=== PATIENT | female | born 1975 | race Hispanic/Latino ===

== ENCOUNTER 2018-11-10 00:57 | Emergency (ER) | payer OTHER ==
--- NOTE | 2018-11-10 02:11 | EDPHYS ---
Physician Documentation [facility] Name: Deonna Heller Age: 42 yrs Sex: Female : 1975 Arrival Date: 11/10/2018 Time: 01:04 Bed 20 Private MD: ED Physician Jasbir Slade HPI: 11/10 02:06 This 42 yrs old Female presents to ER via Ambulatory with complaints of Head km Injury-Adult. 02:06 The patient or guardian reports injury, tenderness. The complaints affect the left km occipital area and right occipital area. Context of injury: The problem was sustained at home. Onset: The symptoms/episode began/occurred 20 hour(s) ago. Associated signs and symptoms: The patient has no apparent associated signs or symptoms, Loss of consciousness: This patient did not experience any loss of consciousness. Severity of symptoms: At their worst the symptoms were mild, in the emergency department the symptoms are unchanged. The patient has not experienced similar symptoms in the past. 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 - Social history:: Smoking status: Patient/guardian denies using tobacco. - Ebola Screening: : No symptoms or risks identified at this time. - Family history:: not pertinent. ROS: 02:06 Constitutional: Negative for fever, chills, and weight loss, Eyes: Negative for injury, km pain, redness, and discharge, ENT: Negative for injury, pain, and discharge, Neck: Negative for injury, pain, and swelling, Cardiovascular: Negative for chest pain, palpitations, and edema, Respiratory: Negative for shortness of breath, cough, wheezing, and pleuritic chest pain, Abdomen/GI: Negative for abdominal pain, nausea, vomiting, diarrhea, and constipation, Back: Negative for injury and pain, : Negative for injury, bleeding, discharge, and swelling, MS/Extremity: Negative for injury and deformity, Skin: Negative for injury, rash, and discoloration, Psych: Negative for depression, anxiety, suicide ideation, homicidal ideation, and hallucinations, Allergy/Immunology: Negative for hives, rash, and allergies, Endocrine: Negative for neck swelling, polydipsia, polyuria, polyphagia, and marked weight changes, Hematologic/Lymphatic: Negative for swollen nodes, abnormal bleeding, and unusual bruising. 02:06 Neuro: Positive for headache. Exam: 02:06 Constitutional: This is a well developed, well nourished patient who is awake, alert, km and in no acute distress. Eyes: Pupils equal round and reactive to light, extra-ocular motions intact. Lids and lashes normal. Conjunctiva and sclera are non-icteric and not injected. Cornea within normal limits. Periorbital areas with no swelling, redness, or edema. ENT: Nares patent. No nasal discharge, no septal abnormalities noted. Tympanic membranes are normal and external auditory canals are clear. Oropharynx with no redness, swelling, or masses, exudates, or evidence of obstruction, uvula midline. Mucous membranes moist. Neck: Trachea midline, no thyromegaly or masses palpated, and no cervical lymphadenopathy. Supple, full range of motion without nuchal rigidity, or vertebral point tenderness. No Meningismus. Chest/axilla: Normal chest wall appearance and motion. Nontender with no deformity. No lesions are appreciated. Cardiovascular: Regular rate and rhythm with a normal S1 and S2. No gallops, murmurs, or rubs. Normal PMI, no JVD. No pulse deficits. Respiratory: Lungs have equal breath sounds bilaterally, clear to auscultation and percussion. No rales, rhonchi or wheezes noted. No increased work of breathing, no retractions or nasal flaring. Abdomen/GI: Soft, non-tender, with normal bowel sounds. No distension or tympany. No guarding or rebound. No evidence of tenderness throughout. Back: No spinal tenderness. No costovertebral tenderness. Full range of motion. Skin: Warm, dry with normal turgor. Normal color with no rashes, no lesions, and no evidence of cellulitis. MS/ Extremity: Pulses equal, no cyanosis. Neurovascular intact. Full, normal range of motion. Neuro: Awake and alert, GCS 15, oriented to person, place, time, and situation. Cranial nerves II-XII grossly intact. Motor strength 5/5 in all extremities. Sensory grossly intact. Cerebellar exam normal. Normal gait. Psych: Awake, alert, with orientation to person, place and time. Behavior, mood, and affect are within normal limits. 02:06 Head/face: Noted is swelling, that is mild, of the left side of the back of head, left occipital area, left base of the skull, right side of the back of head, right occipital area and right base of the skull. Vital Signs: 01:23 BP 149 / 92; Pulse 110; Resp 18; Temp 98.7(O); Pulse Ox 96% ; Weight 68.04 kg; Height 5 ea ft. 5 in. (165.10 cm); Pain 7/10; 01:23 Body Mass Index 24.96 (68.04 kg, 165.10 cm) ea Brittany Coma Score: 01:19 Eye Response: spontaneous(4). Verbal Response: oriented(5). Motor Response: obeys commands(6). Total: 15. 02:06 Eye Response: spontaneous(4). Verbal Response: oriented(5). Motor Response: obeys [facility] commands(6). Total: 15. MDM: 01:19 Patient medically screened. [facility] 02:09 Data reviewed: vital signs, nurses notes. [facility] Administered Medications: 02:18 Drug: Motrin 600 mg Route: PO; ak1 02:22 Follow up: Response: Medication administered at discharge. ak1 Disposition: 11/10/18 02:10 Discharged to Home. Impression: Headache, Superficial injury of head. - Condition is Stable. - Discharge Instructions: Head Injury, Adult, Head Injury, Adult, [id number]. - Prescriptions for Ibuprofen 600 mg Oral Tablet - take 1 tablet by ORAL route every 8 hours As needed take with food; 21 tablet. Zofran 4 mg Oral Tablet - take 1 tablet by ORAL route every 12 hours As needed; 10 tablet. - Medication Reconciliation Form, Thank You Letter, Antibiotic Education, Prescription Opioid Use form. - Follow up: Private Physician; When: 2 - 3 days; Reason: Recheck today's complaints, Continuance of care, Re-evaluation by your physician. - Problem is new. - Symptoms have improved. Signatures: Jasbir Slade MD MD cha Krenek, Amber RN RN ak1 Magalis Ho RN RN ea Corrections: (The following items were deleted from the chart) 02:26 02:10 11/10/2018 02:10 Discharged to Home. Impression: Headache; Superficial injury of ak1 head. Condition is Stable. Forms are Medication Reconciliation Form, Thank You Letter, Antibiotic Education, Prescription Opioid Use. Follow up: Private Physician; When: 2 - 3 days; Reason: Recheck today's complaints, Continuance of care, Re-evaluation by your physician. Problem is new. Symptoms have improved. km
--- NOTE | 2018-11-10 02:11 | ER ---
Nurse's Notes [facility] Name: Deonna Heller Age: 42 yrs Sex: Female : 1975 Arrival Date: 11/10/2018 Time: 01:04 Bed 20 Private MD: Diagnosis: Headache;Superficial injury of head Presentation: 11/10 01:19 Presenting complaint: Patient states: Pt reports she hit her head on the headboard of ea her bed this AM, denies LOC. States "I have been having a headache since this morning and the pain just seems to be getting worse". Transition of care: patient was not received from another setting of care. Mechanism of Injury: resulted from impacting a hard surface, headboard. 01:19 Method Of Arrival: Ambulatory ea 01:27 Onset of symptoms was November 10, 2018. Risk Assessment: Do you want to hurt yourself ea or someone else? Patient reports no desire to harm self or others. Initial Sepsis Screen: Does the patient meet any 2 criteria? HR > 90 bpm. Yes Does the patient have a suspected source of infection? No. Patient's initial sepsis screen is negative. Care prior to arrival: None. 01:27 Acuity: JEANNA 3 ea Triage Assessment: 01:28 General: Appears in no apparent distress. Behavior is calm, cooperative, appropriate ea for age. Pain: Complains of pain in occipital area Pain radiates to forehead Pain currently is 7 out of 10 on a pain scale. Quality of pain is described as pressure. Neuro: Level of Consciousness is awake, alert, obeys commands, Oriented to person, place, time, situation, Reports headache frontal area, occipital area. Cardiovascular: Patient's skin is warm and dry. Respiratory: Airway is patent Respiratory effort is even, unlabored, Respiratory pattern is regular, symmetrical. GI: No signs and/or symptoms were reported involving the gastrointestinal system. Derm: Skin is pink, warm \\T\\ dry. 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 - Social history:: Smoking status: Patient/guardian denies using tobacco. - Ebola Screening: : No symptoms or risks identified at this time. - Family history:: not pertinent. Screenin:22 Abuse screen: Denies threats or abuse. Nutritional screening: No deficits noted. ea Tuberculosis screening: No symptoms or risk factors identified. Fall Risk None identified. Assessment: 02:23 General: Appears in no apparent distress. Behavior is calm, cooperative. Pain: ak1 Complains of pain in right base of the skull and right side of the back of head and left base of the skull and left side of the back of head and right occipital area and left occipital area and face and forehead and scalp and occipital area. Neuro: Level of Consciousness is awake, alert, obeys commands, Oriented to person, place, time, situation, Camera Assembler are equal bilaterally Moves all extremities. Gait is steady, Speech is normal. Cardiovascular: Rhythm is sinus tachycardia. Respiratory: No deficits noted. GI: Reports nausea. : No signs and/or symptoms were reported regarding the genitourinary system. EENT: No signs and/or symptoms were reported regarding the EENT system. Derm: No signs and/or symptoms reported regarding the dermatologic system. Musculoskeletal: No signs and/or symptoms reported regarding the musculoskeletal system. Vital Signs: 01:23 BP 149 / 92; Pulse 110; Resp 18; Temp 98.7(O); Pulse Ox 96% ; Weight 68.04 kg; Height 5 ea ft. 5 in. (165.10 cm); Pain 7/10; 01:23 Body Mass Index 24.96 (68.04 kg, 165.10 cm) ea Brittany Coma Score: 01:19 Eye Response: spontaneous(4). Verbal Response: oriented(5). Motor Response: obeys ea commands(6). Total: 15. 02:06 Eye Response: spontaneous(4). Verbal Response: oriented(5). Motor Response: obeys [facility] commands(6). Total: 15. ED Course: 01:04 Patient arrived in ED. es 01:19 Jasbir Slade MD is Attending Physician. km 01:23 Patient has correct armband on for positive identification. Placed in gown. Bed in low ea position. Call light in reach. 01:23 Arm band placed on right wrist. Patient placed in an exam room, on a stretcher, on ea pulse oximetry. 01:27 Triage completed. ea 02:16 Magalis Ho, RN is Primary Nurse. ea 02:23 No provider procedures requiring assistance completed. Patient did not have IV access ak1 during this emergency room visit. Administered Medications: 02:18 Drug: Motrin 600 mg Route: PO; ak1 02:22 Follow up: Response: Medication administered at discharge. ak1 Outcome: 02:10 Discharge ordered by . km 02:24 Discharged to home ambulatory, pt left prior to signing paperwork. pt left prior to ak1 discharge instructions. pt left without prescriptions. 02:24 Condition: good 02:24 Discharge instructions given to no instruction or prescriptions given due to pt eloping. 02:26 Patient left the ED. ak1 Signatures: Jasbir Slade MD MD cha Salyer, Edna es Krenek, Amber RN RN ak Magalis Ho, RN RN boogie
[2018-11-10] MEDS ORDERED: IBUPROFEN 400 MG TAB ONE (02:28)
[2018-11-10] MEDS ORDERED: IBUPROFEN 200 MG TAB PO ONE (02:28)
== END 2018-11-10 02:26 | disposition home or self-care (01) ==
LOC: ER 00:57
DX: S00.90XA Unspecified superficial injury of unspecified part of head, initial encounter (principal); X58.XXXA Exposure to other specified factors, initial encounter; Y93.9 Activity, unspecified; Y92.009 Unspecified place in unspecified non-institutional (private) residence as the place of occurrence of the external cause; I10 Essential (primary) hypertension
CPT/HCPCS: 99284

== ENCOUNTER 2019-03-12 08:05 | Emergency (ER) | payer OTHER ==
[2019-03-12] MEDS ORDERED: ONDANSETRON 4 MG/2 ML VIAL ONE (08:47)
[2019-03-12] MEDS ORDERED: NA CHLORIDE 0.9% 1,000 ML ONE (08:47)
[2019-03-12 09:09] LABS: Absolute Monocytes 0.7 K/uL (0.1-1.3); Absolute Neutrophil 8.9 K/uL (1.8-8.0); Basophils % 0.3 % (0-1.3); Eosinophils % 0.7 % (0-4.4); Hematocrit 47.5 % (36.0-45.0); Lymphocytes % 17.1 % (15.3-44.8); MPV 8.2 fL (7.6-11.3); Monocytes % 6.3 % (3.3-12.3); RBC Red Blood Cell Count 5.16 M/uL (3.86-4.86)
[2019-03-12 09:13] LABS: ALT/SGPT 23 U/L (12-78); AST/SGOT 15 U/L (15-37); Albumin 3.7 g/dL (3.4-5.0); Alkaline Phosphatase 65 U/L (45-117); BUN Blood Urea Nitrogen 14 mg/dL (7-18); Bicarbonate 27 mmol/L (21-32); Bilirubin Direct < 0.1 mg/dL (0-0.2); Bilirubin Total 0.3 mg/dL (0.2-1.0); Glucose Level 122 mg/dL (74-106); Lipase 117 U/L (73-393); Potassium 3.4 mmol/L (3.5-5.1); Protein, Total 7.2 g/dL (6.4-8.2); Sodium Level 140 mmol/L (136-145)
[2019-03-12 09:37] LABS: Urine Blood NEGATIVE (NEG); Urine Glucose NEGATIVE (NEG); Urine Protein 1+ (NEG)
[2019-03-12 09:49] LABS: Urine Bacteria >50 /HPF (<20); Urine Culture Reflex Order NOT NEEDED; Urine RBC <5 /HPF (NONE SEEN)
--- NOTE | 2019-03-12 09:50 | RAD REPORT ---
EXAM DESCRIPTION: CTAbdomen Pelvis W Contrast - 03/12/2019 9:44 am CLINICAL HISTORY: Abdominal pain. IV contrast only;Abd pain COMPARISON: Abdomen Pelvis W Contrast dated 02/28/2016 TECHNIQUE: Biphasic CT imaging of the abdomen and pelvis was performed with 100 ml non-ionic IV cont rast. All CT scans are performed using dose optimization technique as appropriate and may include automated exposure control or mA/KV adjustment according to patient size. FINDINGS: The lung bases are clear. The liver, spleen, pancreas, adrenal glands and kidneys are within normal limits. No bowel obstruction, free air, free fluid or abscess. Thickening in fecal retention is seen througho ut the colon, greatest in the sigmoid colon, suspicious for colitis. The appendix is normal. No evid ence of significant lymphadenopathy. No suspicious bony findings. IMPRESSION: Mild to moderate colitis suspected, greatest in the sigmoid colon. No pneumatosis seen.
[2019-03-12 10:04] LABS: Barbiturates NEGATIVE (NEGATIVE); Benzodiazepines NEGATIVE (NEGATIVE); Cocaine NEGATIVE (NEGATIVE); METHAMPHETAM NEGATIVE (NEGATIVE); Methadone NEGATIVE (NEGATIVE); Opiates NEGATIVE (NEGATIVE); Phencyclidine NEGATIVE (NEGATIVE); THC Cannibis NEGATIVE (NEGATIVE)
[2019-03-12] MEDS ORDERED: METRONIDAZOLE 500mg IVPB 500 MG/100 ML BAG IV ONE (10:25)
[2019-03-12] MEDS ORDERED: CIPROFLOXACIN 400mg IV 400 MG/200 ML BAG IV ONE (10:25)
--- NOTE | 2019-03-12 10:40 | ER ---
Nurse's Notes [facility] Name: Deonna Willis Age: 43 yrs Sex: Female : 1975 Arrival Date: 03/12/2019 Time: 08:09 Bed 17 Private MD: Diagnosis: Colitis, nonspecific;Urinary tract infection, site not specified Presentation: 03/12 08:24 Presenting complaint: Patient states: LLQ pain and diarrhea today, vomited once this iw morning, pain described as cramping, constant. Transition of care: patient was not received from another setting of care. Onset of symptoms was March 12, 2019. Risk Assessment: Do you want to hurt yourself or someone else? Patient reports no desire to harm self or others. Initial Sepsis Screen: Does the patient meet any 2 criteria? No. Patient's initial sepsis screen is negative. Does the patient have a suspected source of infection? No. Patient's initial sepsis screen is negative. Care prior to arrival: None. 08:24 Method Of Arrival: Ambulatory 08:24 Acuity: JEANNA 3 iw RN GASTROENTEROLOGY: 08:32 LMP 03/04/2019 iw Historical: - Allergies: 08:25 No Known Allergies; iw - PMHx: 08:25 Hypertension; iw - PSHx: 08:25 abdominoplasty; iw - Immunization history:: Adult Immunizations up to date. - Social history:: Smoking status: Patient uses tobacco products, smokes one-half pack cigarettes per day, Patient uses alcohol, few times per week, normally beer but had 3 [place] ice teas yesterday . - Family history:: not pertinent. - Ebola Screening: : Patient negative for fever greater than or equal to 101.5 degrees Fahrenheit, and additional compatible Ebola Virus Disease symptoms Patient denies exposure to infectious person Patient denies travel to an Ebola-affected area in the 21 days before illness onset No symptoms or risks identified at this time. - Hospitalizations: : No recent hospitalization is reported. Screenin:00 Abuse screen: Denies threats or abuse. Nutritional screening: No deficits noted. em Tuberculosis screening: No symptoms or risk factors identified. Fall Risk None identified. Assessment: 09:24 Reassessment: Patient appears in no apparent distress at this time. No changes from tw2 previously documented assessment. Patient and/or family updated on plan of care and expected duration. Pain level reassessed. Patient is alert, oriented x 3, equal unlabored respirations, skin warm/dry/pink. 10:30 Reassessment: Patient appears in no apparent distress at this time. Patient and/or em family updated on plan of care and expected duration. Pain level reassessed. Patient is alert, oriented x 3, equal unlabored respirations, skin warm/dry/pink. reports intermitent nausea, provider notified, new medication orders received. 10:50 Reassessment: 1 episode of vomiting, provider notified, new medication orders received, em will continue to monitor. 12:46 Reassessment: Patient appears in no apparent distress at this time. Patient and/or em family updated on plan of care and expected duration. Pain level reassessed. Patient is alert, oriented x 3, equal unlabored respirations, skin warm/dry/pink. no more vomiting episodes observed, provider notified, pt can be discharged with follow up instructions. Vital Signs: 08:32 BP 113 / 88; Pulse 53; Resp 16; Temp 98.0(TE); Pulse Ox 100% on R/A; Weight 65.77 kg; iw Height 5 ft. 5 in. (165.10 cm); Pain 10/10; 09:23 BP 126 / 80; Pulse 51; Resp 17; Pulse Ox 100% on R/A; tw2 10:30 BP 136 / 87; Pulse 63; Resp 18; Pulse Ox 99% on R/A; em 12:17 BP 129 / 84; Pulse 61; Resp 18; Pulse Ox 99% on R/A; em 08:32 Body Mass Index 24.13 (65.77 kg, 165.10 cm) iw ED Course: 08:09 Patient arrived in ED. rg4 08:16 Thanh Abebe MD is Attending Physician. rn 08:18 Greg Kruger LVN is Primary Nurse. em 08:25 Triage completed. iw 08:30 Inserted saline lock: 22 gauge in right antecubital area, using aseptic technique. em Blood collected. 08:31 Radiology exam delayed due to lab results not completed at this time. (BUN/Creatinine) mw3 test not completed at this time. 08:32 Arm band placed on. iw 09:00 Patient has correct armband on for positive identification. Placed in gown. Bed in low em position. Call light in reach. Adult w/ patient. Pulse ox on. NIBP on. 09:23 Radiology exam delayed due to test not completed at this time. mw3 09:38 CT completed. Patient tolerated procedure well. Patient moved back from CT. bq 09:45 CT Abd/Pelvis - W/Contrast In Process Unspecified. EDMS 12:45 No provider procedures requiring assistance completed. IV discontinued, intact, em bleeding controlled, No redness/swelling at site. Pressure dressing applied. Administered Medications: 08:38 Drug: NS 0.9% 1000 ml Route: IV; Rate: 1000 ml; Site: right antecubital; tw2 11:07 Follow up: IV Status: Completed infusion; IV Intake: 1000ml iw 08:42 Drug: Zofran 4 mg Route: IVP; Site: right antecubital; tw2 09:32 Follow up: Response: No adverse reaction; Nausea is decreased em 10:10 Drug: Flagyl 500 mg Volume: 100 ml; Route: IVPB; Rate: 200 ml/hr; Infused Over: 30 em mins; Site: right antecubital; 10:45 Follow up: Response: No adverse reaction; IV Status: Completed infusion; IV Intake: em 100ml 10:43 Drug: Phenergan 12.5 mg Route: IVP; Site: right antecubital; iw 12:08 Follow up: Response: No adverse reaction em 10:52 Drug: Cipro 400 mg Volume: 200 ml; Route: IVPB; Infused Over: 60 mins; Site: right iw antecubital; 12:18 Follow up: Response: No adverse reaction; IV Status: Completed infusion; IV Intake: em 200ml Intake: 10:45 IV: 100ml; Total: 100ml. em 11:07 IV: 1000ml; Total: 1100ml. iw 12:18 IV: 200ml; Total: 1300ml. em Outcome: 10:39 Discharge ordered by . rn 12:45 Discharged to home ambulatory, with family. em 12:45 Condition: good 12:45 Discharge instructions given to patient, family, Instructed on discharge instructions, follow up and referral plans. medication usage, Demonstrated understanding of instructions, follow-up care, medications, Prescriptions given X 4. 12:47 Patient left the ED. em Signatures: Dispatcher [employer] EDMS Radha Butler Edgar, WELL SERVICE FLOORPERSON WELL SERVICE FLOORPERSON Sommer Siddiqi, RN RN Thanh Thompson MD MD rn Nidhi Og RN RN tw2 Dede Minaya 4 Clarice Caballero 3
--- NOTE | 2019-03-12 10:40 | EDPHYS ---
Physician Documentation [facility] Name: Deonna Willis Age: 43 yrs Sex: Female : 1975 Arrival Date: 03/12/2019 Time: 08:09 Bed 17 Private MD: ED Physician Thanh Abebe HPI: 03/12 08:21 This 43 yrs old Female presents to ER via Unassigned with complaints of rn Abdominal Pain, Vomiting/Diarrhea. 08:21 The patient presents to the emergency department with nausea, vomiting, diarrhea, rn abdominal pain. Onset: The symptoms/episode began/occurred 2 day(s) ago. Possible causes: unknown. The symptoms are aggravated by nothing. The symptoms are alleviated by nothing. Severity of symptoms: At their worst the symptoms were moderate in the emergency department the symptoms are unchanged. The patient has experienced a previous episode. Reports abd pain, began RLQ 2 days ago, now involves entire abdomen, assoc with nausea/vomiting/diarrhea. No fever. NO blood in stool or emesis. Denies drug use.. 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 - Social history:: Smoking status: Patient uses tobacco products, smokes one-half pack cigarettes per day, Patient uses alcohol, few times per week, normally beer but had 3 [place] ice teas yesterday . - Family history:: not pertinent. - Ebola Screening: : Patient negative for fever greater than or equal to 101.5 degrees Fahrenheit, and additional compatible Ebola Virus Disease symptoms Patient denies exposure to infectious person Patient denies travel to an Ebola-affected area in the 21 days before illness onset No symptoms or risks identified at this time. - Hospitalizations: : No recent hospitalization is reported. ROS: 08:21 Constitutional: Negative for fever, chills, and weight loss, Eyes: Negative for injury, rn pain, redness, and discharge, Neck: Negative for injury, pain, and swelling, Cardiovascular: Negative for chest pain, palpitations, and edema, Respiratory: Negative for shortness of breath, cough, wheezing, and pleuritic chest pain, Abdomen/GI: + abd pain/nausea/vomiting/diarrhea MS/Extremity: Negative for injury and deformity, Skin: Negative for injury, rash, and discoloration, Neuro: + generalized weakness, negative for headache Exam: 08:21 Constitutional: This is a well developed, well nourished patient who is awake, alert, rn seems anxious and agitated Head/Face: Normocephalic, atraumatic. Eyes: Pupils equal round and reactive to light, extra-ocular motions intact. ENT: MMM Neck: Trachea midline, no thyromegaly or masses palpated, and no cervical lymphadenopathy. Supple, full range of motion without nuchal rigidity, or vertebral point tenderness. No Meningismus. Cardiovascular: Regular rate and rhythm. No pulse deficits. Respiratory: No increased work of breathing, no retractions or nasal flaring. Abdomen/GI: soft, + tenderness in all 4 quadrants, no rebound Back: No spinal tenderness. No costovertebral tenderness. Full range of motion. MS/ Extremity: Pulses equal, no cyanosis. Neurovascular intact. Full, normal range of motion. Equal circumference. Neuro: Awake and alert, GCS 15, oriented to person, place, time, and situation. Cranial nerves II-XII grossly intact. Motor strength 5/5 in all extremities. Sensory grossly intact. Cerebellar exam normal. Normal gait. Vital Signs: 08:32 BP 113 / 88; Pulse 53; Resp 16; Temp 98.0(TE); Pulse Ox 100% on R/A; Weight 65.77 kg; iw Height 5 ft. 5 in. (165.10 cm); Pain 10/10; 09:23 BP 126 / 80; Pulse 51; Resp 17; Pulse Ox 100% on R/A; tw2 10:30 BP 136 / 87; Pulse 63; Resp 18; Pulse Ox 99% on R/A; em 12:17 BP 129 / 84; Pulse 61; Resp 18; Pulse Ox 99% on R/A; em 08:32 Body Mass Index 24.13 (65.77 kg, 165.10 cm) iw MDM: 08:16 Patient medically screened. rn 10:36 Differential diagnosis: Nonspecific abd pain, appendicitis, diverticulitis, viral rn gastroenteritis, gastroenteritis. Data reviewed: vital signs, nurses notes, lab test result(s), radiologic studies, CT scan, and as a result, I will discharge patient. Counseling: I had a detailed discussion with the patient and/or guardian regarding: the historical points, exam findings, and any diagnostic results supporting the discharge/admit diagnosis, lab results, radiology results, the need for outpatient follow up, to return to the emergency department if symptoms worsen or persist or if there are any questions or concerns that arise at home. Response to treatment: the patient's symptoms have mildly improved after treatment, and as a result, I will discharge patient. Special discussion: I discussed with the patient/guardian in detail that at this point there is no indication for admission to the hospital. It is understood, however, that if the symptoms persist or worsen the patient needs to return immediately for re-evaluation. ED course: Pt with improvement of symptoms, normal vitals, + mild colitis with UTI, WBC only 11K, non-toxic, does not appear septic, discussed with patient and family that will give trial of outpt therapy given mild case and normal vitals, and return precautions given and understood. . 03/12 08:21 Order name: Basic Metabolic Panel; Complete Time: 09: 03/12 08:21 Order name: CBC with Diff; Complete Time: 10:36 rn 03/12 08:21 Order name: Hepatic Function; Complete Time: 09: 03/12 08:21 Order name: Lipase; Complete Time: 09: rn 03/12 08:21 Order name: Urine Microscopic Only; Complete Time: :53 rn 03/12 08:24 Order name: Urine Drug Screen; Complete Time: 10:36 rn 03/12 08:21 Order name: CT Abd/Pelvis - W/Contrast; Complete Time: 09:53 rn 03/12 09:31 Order name: Urine Dipstick--Ancillary (enter results); Complete Time: :53 03/12 09:31 Order name: Urine --Ancillary (enter results); Complete Time: 09:53 eb 03/12 08:21 Order name: IV Saline Lock; Complete Time: 08:42 rn 03/12 08:21 Order name: Labs collected and sent; Complete Time: 08:42 rn 03/12 08:21 Order name: Urine Test (obtain specimen); Complete Time: 09:32 rn 03/12 08:21 Order name: Urine Dipstick-Ancillary (obtain specimen); Complete Time: 09:32 rn Administered Medications: 08:38 Drug: NS 0.9% 1000 ml Route: IV; Rate: 1000 ml; Site: right antecubital; tw2 11:07 Follow up: IV Status: Completed infusion; IV Intake: 1000ml iw 08:42 Drug: Zofran 4 mg Route: IVP; Site: right antecubital; tw2 09:32 Follow up: Response: No adverse reaction; Nausea is decreased em 10:10 Drug: Flagyl 500 mg Volume: 100 ml; Route: IVPB; Rate: 200 ml/hr; Infused Over: 30 em mins; Site: right antecubital; 10:45 Follow up: Response: No adverse reaction; IV Status: Completed infusion; IV Intake: em 100ml 10:43 Drug: Phenergan 12.5 mg Route: IVP; Site: right antecubital; iw 12:08 Follow up: Response: No adverse reaction em 10:52 Drug: Cipro 400 mg Volume: 200 ml; Route: IVPB; Infused Over: 60 mins; Site: right iw antecubital; 12:18 Follow up: Response: No adverse reaction; IV Status: Completed infusion; IV Intake: em 200ml Disposition: 03/12/19 10:39 Discharged to Home. Impression: Colitis, nonspecific, Urinary tract infection, site not specified. - Condition is Stable. - Discharge Instructions: Urinary Tract Infection, Adult, Colitis. - Prescriptions for Zofran ODT 4 mg Oral tablet,disintegrating - place 1 tablet by TRANSLINGUAL route every 8 hours As needed; 20 tablet. Cipro 500 mg Oral Tablet - take 1 tablet by ORAL route every 12 hours for 10 days; 20 tablet. Flagyl 500 mg Oral Tablet - take 1 tablet by ORAL route every 8 hours for 10 days; 30 tablet. Tylenol- Codeine #3 300-30 mg Oral Tablet - take 1 tablet by ORAL route every 6 hours As needed; 20 tablet. - Medication Reconciliation Form, Thank You Letter, Antibiotic Education, Prescription Opioid Use form. - Follow up: Private Physician; When: As needed; Reason: Recheck today's complaints, Re-evaluation by your physician. - Problem is new. - Symptoms have improved. Signatures: Dispatcher [employer] Greg Kenyon, DUSTLESS OPERATOR DUSTLESS OPERATOR em Sommer Grey RN RN iw Abebe, Thanh, MD MD rn Og, Nidhi, RN RN tw2 Corrections: (The following items were deleted from the chart) 12:47 10:39 03/12/2019 10:39 Discharged to Home. Impression: Colitis, nonspecific; Urinary em tract infection, site not specified. Condition is Stable. Forms are Medication Reconciliation Form, Thank You Letter, Antibiotic Education, Prescription Opioid Use. Follow up: Private Physician; When: As needed; Reason: Recheck today's complaints, Re-evaluation by your physician. Problem is new. Symptoms have improved. rn
[2019-03-12] MEDS ORDERED: PROMETHAZINE 25 MG/ML VIAL ONE ×2 (10:46→11:45)
== END 2019-03-12 12:47 | disposition home or self-care (01) ==
LOC: ER 08:05
DX: K52.9 Noninfective gastroenteritis and colitis, unspecified (principal); N39.0 Urinary tract infection, site not specified; I10 Essential (primary) hypertension; F17.210 Nicotine dependence, cigarettes, uncomplicated
CPT/HCPCS: 36415; 74177; 80048; 80076; 80307; 81003; 81015; 81025; 83690; 85025; 96361; 96365; 96367; 96375; 99284; J0744; J2405; J2550; J7030; Q9967

== ENCOUNTER 2019-12-14 19:33 | Emergency (ER) | payer OTHER ==
[2019-12-14] MEDS ORDERED: dexAMETHasone 4 MG/ML VIAL ONE (20:35)
[2019-12-14] MEDS ORDERED: MEPERIDINE HCL 25 MG/0.5 ML ONE (20:35)
--- NOTE | 2019-12-14 20:54 | EDPHYS ---
Physician Documentation [facility] Name: Deonna Willis Age: 44 yrs Sex: Female : 1975 Arrival Date: 12/14/2019 Time: 19:35 Bed 17 Private MD: ED Physician Thanh Abebe HPI: 12/14 20:08 This 44 yrs old Female presents to ER via Ambulatory with complaints of Back rn pain, Neck pain. 20:08 Reports years of neck abd back/shoulder pain, no injury, told in past is muscle spasm, rn reports feels similar but worse over last week, no new trauma, reports sometimes left arm feels tingling. Pain worse with movement of head and arms. NO chest pain/sob/vomiting/abd pain. . Severity of symptoms: At their worst the symptoms were mild in the emergency department the symptoms are unchanged. The patient has experienced similar episodes in the past. The patient has not recently seen a physician. Historical: - Allergies: 19:46 No Known Allergies; ca1 - Home Meds: 19:46 "High blood pressure medicine" [Active]; ca1 - PMHx: 19:46 Hypertension; ca1 - PSHx: 19:46 abdominoplasty; ca1 - Immunization history:: Adult Immunizations up to date, Flu vaccine is not up to date. - Coronavirus screen:: The patient has NOT traveled to [place] in the past 14 days. The patient has NOT had contact with known/suspected case of Coronavirus?. - Social history:: Smoking status: Patient reports the use of cigarette tobacco products, smokes one-half pack cigarettes per day, Patient uses alcohol, but reports only rare drinking. - Family history:: not pertinent. - Ebola Screening: : Patient negative for fever greater than or equal to 101.5 degrees Fahrenheit, and additional compatible Ebola Virus Disease symptoms Patient denies exposure to infectious person Patient denies travel to an Ebola-affected area in the 21 days before illness onset No symptoms or risks identified at this time. - Hospitalizations: : No recent hospitalization is reported. ROS: 20:08 Constitutional: Negative for fever, chills, and weight loss, Eyes: Negative for injury, rn pain, redness, and discharge, Neck: + neck pain Cardiovascular: Negative for chest pain, palpitations, and edema, Respiratory: Negative for shortness of breath, cough, wheezing, and pleuritic chest pain, Abdomen/GI: Negative for abdominal pain, nausea, vomiting, diarrhea, and constipation, Back: Negative for injury MS/Extremity: Negative for injury and deformity, Skin: Negative for injury, rash, and discoloration, Neuro: Negative for headache, weakness, and seizure. Exam: 20:08 Constitutional: This is a well developed, well nourished patient who is awake, alert, rn and in no acute distress. Head/Face: Normocephalic, atraumatic. Neck: Trachea midline, no thyromegaly or masses palpated, and no cervical lymphadenopathy. Supple, full range of motion without nuchal rigidity, or vertebral point tenderness. No Meningismus. Cardiovascular: Regular rate and rhythm. No pulse deficits. Respiratory: No increased work of breathing, no retractions or nasal flaring. Abdomen/GI: soft, non-tender Back: No spinal tenderness. No costovertebral tenderness. Full range of motion. Skin: Warm, dry, no pallor MS/ Extremity: Pulses equal, no cyanosis. Neurovascular intact. Full, normal range of motion. Equal circumference. Neuro: Awake and alert, GCS 15, oriented to person, place, time, and situation. Cranial nerves II-XII grossly intact. Motor strength 5/5 in all extremities. Sensory grossly intact. 20:46 ECG was reviewed by the Attending Physician. rn Vital Signs: 19:46 BP 120 / 92; Pulse 90; Resp 16 S; Temp 97.7(TE); Pulse Ox 100% on R/A; Weight 68.04 kg ca1 (R); Height 5 ft. 5 in. (165.10 cm) (R); 21:06 BP 129 / 90; Pulse 76; Resp 18; Pulse Ox 99% ; wh 19:46 Body Mass Index 24.96 (68.04 kg, 165.10 cm) ca1 MDM: 19:54 Patient medically screened. rn 20:52 Differential Diagnosis radiculopathy, muscle spasm, torticollis, referred pain. Data rn reviewed: vital signs, nurses notes, lab test result(s), EKG, and as a result, I will discharge patient. Counseling: I had a detailed discussion with the patient and/or guardian regarding: the historical points, exam findings, and any diagnostic results supporting the discharge/admit diagnosis, lab results, the need for outpatient follow up, to return to the emergency department if symptoms worsen or persist or if there are any questions or concerns that arise at home. Response to treatment: the patient's symptoms have markedly improved after treatment, and as a result, I will discharge patient. Special discussion: I discussed with the patient/guardian in detail that at this point there is no indication for admission to the hospital. It is understood, however, that if the symptoms persist or worsen the patient needs to return immediately for re-evaluation. 12/14 20:06 Order name: Troponin (emerg Dept Use Only) rn 12/14 20:51 Order name: Troponin (Emerg Dept Use Only); Complete Time: 20:52 EDMS 12/14 20:06 Order name: EKG; Complete Time: 20:07 rn 12/14 20:06 Order name: EKG - Nurse/Tech; Complete Time: 20:32 rn 12/14 20:06 Order name: IV Start; Complete Time: 20:32 rn EC:46 Rate is 81 beats/min. Rhythm is regular. QRS [place] is Normal. IN interval is normal. QRS rn interval is normal. QT interval is normal. No Q waves. T waves are Normal. No ST changes noted. Clinical impression: Normal ECG. Interpreted by me. Reviewed by me. Administered Medications: 20:38 Drug: Demerol 25 mg Route: IVP; Site: right antecubital; 21:00 Follow up: Response: No adverse reaction; Pain is decreased; RASS: Alert and Calm (0) 20:40 Drug: Decadron - Dexamethasone 10 mg Route: IVP; Site: right antecubital; 21:00 Follow up: Response: No adverse reaction Disposition: 12/14/19 20:53 Discharged to Home. Impression: Radiculopathy, cervical region. - Condition is Stable. - Discharge Instructions: Cervical Radiculopathy. - Prescriptions for Cyclobenzaprine 10 mg Oral Tablet - take 1 tablet by ORAL route every 8 hours As needed; 15 tablet. Medrol (Subhash) 4 mg Oral Tablets, Dose Pack - take 1 tablet by ORAL route as directed - follow package instructions; 1 packet. - Medication Reconciliation Form, Thank You Letter, Antibiotic Education, Prescription Opioid Use form. - Follow up: Private Physician; When: As needed; Reason: Recheck today's complaints, Re-evaluation by your physician. - Problem is chronic. - Symptoms have improved. Signatures: Dispatcher [employer] EDMS Thanh Abebe MD MD rn [facility], Stan Ayesha, BJORN Peters RN ca1 Corrections: (The following items were deleted from the chart) 21:08 20:53 12/14/2019 20:53 Discharged to Home. Impression: Radiculopathy, cervical region. Condition is Stable. Forms are Medication Reconciliation Form, Thank You Letter, Antibiotic Education, Prescription Opioid Use. Follow up: Private Physician; When: As needed; Reason: Recheck today's complaints, Re-evaluation by your physician. Problem is chronic. Symptoms have improved. rn
--- NOTE | 2019-12-14 20:54 | ER ---
Nurse's Notes [facility] Name: Deonna Willis Age: 44 yrs Sex: Female : 1975 Arrival Date: 12/14/2019 Time: 19:35 Bed 17 Private MD: Diagnosis: Radiculopathy, cervical region Presentation: 12/14 19:43 Presenting complaint: Patient states: I was diagnosed with muscle spasms years ago. A ca1 couple of days ago, I have been having pain on my back, shoulders and neck. It seems to be spreading on my arms now. Transition of care: patient was not received from another setting of care. Onset of symptoms was December 14, 2019. Risk Assessment: Do you want to hurt yourself or someone else? Patient reports no desire to harm self or others. Initial Sepsis Screen: Does the patient meet any 2 criteria? No. Patient's initial sepsis screen is negative. Does the patient have a suspected source of infection? No. Patient's initial sepsis screen is negative. Care prior to arrival: None. 19:43 Method Of Arrival: Ambulatory ca1 19:43 Acuity: JEANNA 4 ca1 Historical: - Allergies: 19:46 No Known Allergies; ca1 - Home Meds: 19:46 "High blood pressure medicine" [Active]; ca1 - PMHx: 19:46 Hypertension; ca1 - PSHx: 19:46 abdominoplasty; ca1 - Immunization history:: Adult Immunizations up to date, Flu vaccine is not up to date. - Coronavirus screen:: The patient has NOT traveled to [place] in the past 14 days. The patient has NOT had contact with known/suspected case of Coronavirus?. - Social history:: Smoking status: Patient reports the use of cigarette tobacco products, smokes one-half pack cigarettes per day, Patient uses alcohol, but reports only rare drinking. - Family history:: not pertinent. - Ebola Screening: : Patient negative for fever greater than or equal to 101.5 degrees Fahrenheit, and additional compatible Ebola Virus Disease symptoms Patient denies exposure to infectious person Patient denies travel to an Ebola-affected area in the 21 days before illness onset No symptoms or risks identified at this time. - Hospitalizations: : No recent hospitalization is reported. Screenin:50 Abuse screen: Denies threats or abuse. Denies injuries from another. Nutritional wh screening: No deficits noted. Tuberculosis screening: No symptoms or risk factors identified. Fall Risk None identified. Assessment: 19:50 General: Appears in no apparent distress. Behavior is calm, cooperative, appropriate wh for age. Pain: Complains of pain in left trapezius, right trapezius and thoracic area Pain radiates to right arm and left arm Pain currently is 8 out of 10 on a pain scale. Quality of pain is described as burning. Neuro: Level of Consciousness is awake, alert, obeys commands, Oriented to person, place, time, situation, Appropriate for age. Cardiovascular: Heart tones S1 S2 Rhythm is regular. Respiratory: Airway is patent Respiratory effort is even, unlabored, Respiratory pattern is regular, symmetrical, Breath sounds are clear bilaterally. GI: Abdomen is flat, non-distended. : No signs and/or symptoms were reported regarding the genitourinary system. EENT: No signs and/or symptoms were reported regarding the EENT system. Derm: Skin is intact, is healthy with good turgor, Skin is pink, warm \\T\\ dry. normal. Musculoskeletal: Circulation, motion, and sensation intact. 20:44 Reassessment: Patient appears in no apparent distress at this time. No changes from previously documented assessment. Patient and/or family updated on plan of care and expected duration. Pain level reassessed. Patient is alert, oriented x 3, equal unlabored respirations, skin warm/dry/pink. Vital Signs: 19:46 BP 120 / 92; Pulse 90; Resp 16 S; Temp 97.7(TE); Pulse Ox 100% on R/A; Weight 68.04 kg ca1 (R); Height 5 ft. 5 in. (165.10 cm) (R); 21:06 BP 129 / 90; Pulse 76; Resp 18; Pulse Ox 99% ; wh 19:46 Body Mass Index 24.96 (68.04 kg, 165.10 cm) ca1 ED Course: 19:35 Patient arrived in ED. ag3 19:45 Triage completed. ca1 19:46 Arm band placed on right wrist. ca1 19:50 Patient has correct armband on for positive identification. Placed in gown. Bed in low wh position. Call light in reach. Side rails up X 1. Pulse ox on. NIBP on. 19:54 Thanh Abebe MD is Attending Physician. rn 20:10 Stan Okeefe is Primary Nurse. 20:10 EKG done, by ED staff, reviewed by Thanh Abebe MD. Inserted saline lock: 22 gauge in right antecubital area, using aseptic technique. Blood collected. 21:05 No provider procedures requiring assistance completed. IV discontinued, intact, bleeding controlled, No redness/swelling at site. Administered Medications: 20:38 Drug: Demerol 25 mg Route: IVP; Site: right antecubital; 21:00 Follow up: Response: No adverse reaction; Pain is decreased; RASS: Alert and Calm (0) 20:40 Drug: Decadron - Dexamethasone 10 mg Route: IVP; Site: right antecubital; 21:00 Follow up: Response: No adverse reaction Outcome: 20:53 Discharge ordered by . rn 21:05 Discharged to home ambulatory, with family. 21:05 Condition: stable 21:05 Discharge instructions given to patient, family, Instructed on discharge instructions, follow up and referral plans. medication usage, POC Demonstrated understanding of instructions, follow-up care, medications, POC Prescriptions given X 2. 21:08 Patient left the ED. Signatures: Thanh Abebe MD MD rn [place], Winsy Vita Leonard ag3 Lorraine Hodge RN RN ca1
--- NOTE | 2019-12-15 09:23 | EKG ---
Test Date: 2019-12-14 Test Time: 20:23:22 [employer] Gre[employer]: SAHARA MEASUREMENT RESULTS: Intervals: Rate: 81 NM: 140 QRSD: 86 QT: 350 QTc: 406 [place]: P: 58 NM: 140 QRS: 78 T: 61 INTERPRETIVE STATEMENTS: Normal sinus rhythm Normal ECG No previous ECG available for comparison Electronically Signed On 12-15-19 09:22:34 [employer] by Apollo Breen
[2019-12-16 02:26] VITALS: TEMP 97.7
[2019-12-16 02:27] VITALS: BP 129/90; O2SAT 99
== END 2019-12-14 21:08 | disposition home or self-care (01) ==
LOC: ER 19:33
DX: M54.12 Radiculopathy, cervical region (principal); I10 Essential (primary) hypertension; Z72.0 Tobacco use
CPT/HCPCS: 93005; 36415; 84484; 96375; 96374; 99284; J2175